=== PATIENT | female | born 1990 | race Caucasian/White ===

== ENCOUNTER 2024-07-11 01:04 | Outpatient (CLI) | payer BC, SELFPAY ==
--- NOTE | 2024-07-11 14:39 | DI.RAD_ITS ---
Exam(s) XR FOOT RT COMPLETE EXAM: XR FOOT RT COMPLETE CLINICAL HISTORY: Right foot pain.M79.671. TECHNIQUE: 2D digital imaging was performed. COMPARISON: No exams were available for comparison FINDINGS: 3 views No evidence of fracture or diastasis of the Lisfranc joint. There are moderate degenerative changes in the great toe metatarsophalangeal joint. Other MTP joints appear unremarkable as do the tarsometa tarsal joints and other articulations. No pes planus. Bone density is normal. No osseous lesions. 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 DATA REPOSITORY: RADIATION DOSE DELIVERED:
== END 2024-07-11 01:24 ==
PROVIDERS: Visit Provider Podiatrist
DX: M19.071 Primary osteoarthritis, right ankle and foot (principal)
CPT/HCPCS: 73630

== ENCOUNTER 2024-07-26 02:20 | Outpatient (CLI) | payer BC, SELFPAY ==
--- NOTE | 2024-07-26 | DI.US_ITS ---
Exam(s) US BREAST RT COMPLETE MG MAMMO DIAGNOSTIC BI EXAM: MG MAMMO DIAGNOSTIC BI AND COMPLETE RIGHT BREAST ULTRASOUND CLINICAL HISTORY: N63.10 PALPABLE ROUND MASS. TECHNIQUE: BILATERAL CC AND MLO mammographic images were obtained with 3D tomosynthesis technique an d utilizing computer aided detection (CAD). Also performed spot compression views of area of clinical concern in the right breast. COMPLETE RIGHT BREAST ULTRASOUND was performed, including all 4 quadrants well as the right axilla. COMPARISON: None. This is a 34-year-old patient who has been feeling and increasing size lump for t he last 6-8 months. She has been breast-feeding but denies any symptoms of mastitis. FINDINGS: DIAGNOSTIC BILATERAL MAMMOGRAM: The fibroglandular tissue pattern is moderately dense, this somewhat decreasing the sensitivity of th e mammogram for finding hidden underlying lesions. Towards the upper outer quadrant of the right breast there is a somewhat less than well-defined mass approximately 7 cm in from the nipple, measuring approximately 3.5 x 4 cm with some mild associated a rchitectural distortion. There are no malignant-appearing microcalcification groups in this region e lsewhere in either breast. Left breast exhibits dense fibroglandular tissue but without other obvious ominous masses. Benign-ap pearing microcalcifications but no malignant-appearing microcalcification groups and there is no arch itectural distortion or skin thickening-retraction in left breast. COMPLETE RIGHT BREAST ULTRASOUND: At the 11 o'clock position, approximately 6 cm in from the nipple, there is an ominous solid spiculat ed mass which is wider than taller and corresponds to the finding on the mammogram. This measures ap proximately 3.2 x 2.4 x 2.4 cm. This exhibits a few areas of decreased through transmission. Suspic ious for malignancy. There are no other focal solid findings in all 4 quadrants. Scanning of the right axilla does not re veal significant adenopathy. IMPRESSION: 1. There is a concerning solid mass at the 11 o'clock position the right breast as described above, e vident on both mammography and ultrasound and suspicious for malignancy. Ultrasound-guided core biop sy is recommended. 2. No obvious significant findings in the opposite-left The patient was informed of the findings and follow-up recommendations by myself prior to leaving the department today. Findings are recommendations called by myself Dr. Kenneth Yepez on 07/27/24 at 8:20 a.m. BI-RADS Category 5 - Highly Suggestive of Malignancy: Biopsy recommended Breast Density - Category C - Heterogeneously dense Breast density Category C or D implies that the patient has dense breast tissue. Dense breast tissue can make it harder to find cancer on a mammogram. Dense breast tissue is also associated with an incr eased risk of breast cancer. This information about the result of the mammogram report was provided to the patient to raise their awareness. Use this report when you speak with the patient about their risks for breast cancer, which includes their family history. At that time, you may recommend additional screening tests (Ultrasoun d or MRI) as these tests may add significant information. A negative radiographic report should not delay biopsy if a dominant or clinically suspicious mass is present. Up to ten percent of cancers are not identified on mammography. A negative report may reinforce clinical impression. Adenosis and dense breasts may obscure an underlying neoplasm. False positive reports average 6 to 10%. Patient will receive a letter notifying them of these results.
== END 2024-07-26 02:40 ==
LOC: DI 02:20
PROVIDERS: PCP Physician Assistant Medical; Visit Provider Advanced Practice Midwife
DX: Z12.31 Encounter for screening mammogram for malignant neoplasm of breast (principal); N63.13 Unspecified lump in the right breast, lower outer quadrant
CPT/HCPCS: 76642; 77062; 77066; G0279

== ENCOUNTER 2024-08-10 01:50 | Outpatient (CLI) | payer BC, SELFPAY ==
--- NOTE | 2024-08-10 14:40 | DI.US_ITS ---
Exam(s) US NEEDLE LOCAL BREAST WO RAD EXAM: US NEEDLE LOCAL BREAST WO RAD CLINICAL HISTORY: Rt breast mass,ultrasound guided bx. Right Breast. Left Breast. TECHNIQUE: Ultrasound was provided for Dr. Moscoso for guidance with performing right breast biopsy. COMPARISON: MG MG MAMMO DIAGNOSTIC BI from 07/26/2024 US US BREAST RT COMPLETE from 07/26/2024 FINDINGS: Please see procedure note for details. IMPRESSION: Successful Ultrasound-guided Breast Biopsy.
--- NOTE | 2024-08-10 15:07 | BREAST_PTH ---
PATIENT: Sybil Balderas LOC: [facility] U#:[id number] AGE/SX: 34/F ROOM: RE08/10/[address]: Jarek Fernandes MD : 1990 BED: DIS: 08/10/2024 SPEC #: [id number] RECD: 08/10/24 18:15 STATUS: NOELLE REQ #: [id number] JD: 08/10/24 15:[address]: Jarek Fernandes DEPT: Surgical Specimen RECD BY: Mercedes Pulido ENTERED: 08/10/24 18:16 SP TYPE: Breast OTHR DR: Naomie Romero Tissues: 1 - BREAST BX NEEDLE Procedures: GROSS AND MICRO LEVEL 4 IMMUNOPEROXIDASE STAIN Comments: [id number]
--- NOTE | 2024-08-10 15:22 | W.PROCNOTE ---
Date of service: 08/10/24 Time of Service: 15:22 Procedure Note Date of procedure: 08/10/24 Procedure: Core needle biopsy of right breast abnormality Surgeon/Proceduralist/Physician: Jarek Fernandes Procedure Diagnosis: Right breast abnormality seen on mammogram and ultrasound Procedure Indications: Sybil is a 34-year-old woman who was able to palpate a mass in her right breast associated with breast-feeding. She underwent mammogram and follow-up ultrasound to confirm the presence of a suspicious mass in the upper outer quadrant of the right breast. She was referred for core needle biopsy. Procedure Description: I met with Sybil before the procedure, and explained the nature of core needle biopsy and what to expect in terms of discomfort, recovery, and diagnostic value. Explained the risks of the procedure, in particular addressing her concerns with active breast-feeding. Next, the artificial breeding technician performed real-time right breast ultrasound, and I was able to view the images, which appeared congruent with her previous ultrasound. The suspicious mass appeared to be located in the upper outer quadrant of the right breast. I then prepped to the area of the skin adjacent to the ultrasound probe. I raised a generous skin wheal using local anesthetic, then anesthetized along the trajectory of the planned biopsy. I then made a small skin incision, and introduced a 22 mm Bard core needle biopsy device. Then, in usual fashion, I obtained for core needle biopsy specimens as auto service representative sample of the mass. One specimen was a bit small, but the other 3 specimens appeared to be of excellent quality. Sybil tolerated the biopsy procedure without any issues. I then placed a radiopaque marker in the area of the biopsy sites. Gentle pressure was held over the breast, and a Band-Aid was used to dress the access site.
[2024-08-10] MEDS: Lidocaine 1% Pres-Free 5 ML VIAL IJ (15:59)
== END 2024-08-10 02:10 ==
PROVIDERS: PCP Physician Assistant Medical; Visit Provider Surgery
DX: N60.31 Fibrosclerosis of right breast (principal)
CPT/HCPCS: 19083; 88305; 76942; 88361; J2003